=== PATIENT | male | born 1985 | race Caucasian/White ===

== ENCOUNTER 2018-09-12 08:51 | Emergency (ER) | payer BC, SELFPAY ==
[2018-09-12 08:55] VITALS: BP 123/66; PULSE 80; RESP 16; TEMP 36.3; O2SAT 97
--- NOTE | 2018-09-12 09:03 | W.ED.GENAD ---
Discharge Plan Disposition Patient Disposition: HOME Condition: Good Discharge Details Chief Complaint: RashLesion Clinical Impression: Tick bite of chest wall Primary Care Provider: Radha Puentes ED Provider: Carson Ulloa Home Meds and New Rx's Prescriptions: No Action No Known Home Meds RF: 0 Discharge Instructions Instructions: Tick Bite (ED) Additional Instructions: Return to the emergency department if you develop any fever chills, arthralgias, rash, or flulike symptoms with no other cause. Otherwise follow-up with your primary care provider as needed for reassessment Referrals: Radha Puentes [Primary Care Provider] - (As needed for reassessment) Medical Decision Making Patient presenting to the emergency department chief complaint of tick bite. Patient states that him and his noticed the tick this morning. patient denies any other symptoms, arthralgias, fever chills. Physical exam is unremarkable except for attached dog tick. Tick was removed with a tick remover and this was given to the patient for home use. Patient states that his thoroughly looked over the remainder of his body prior to coming in and noted no other tics. Given that this is a dog tick I do not feel that any antibiotics are needed but tickborne illness was discussed with patient. Return precautions discussed. After discussion of diagnosis and plan of care patient has no further needs, questions, or concerns and states clear understanding to return to the emergency department for any worsening symptoms. HPI General Mode of arrival: ambulatory. Date/Time Provider Initiated Documentation: 09/12/18 08:56. Limitations to Documentation: no limitations. Information obtained by: patient and RN notes reviewed. History of Present Illness 33 year old M presents to the emergency department with the chief complaint of Tick bite, Quality is described as other (Denies pain), and is localized to the chest. Patient started experiencing this hour(s) (2) Patient notes no other symptoms.. Patient did receive the following treatments prior to arrival, none Related Data Home Medications Medication Instructions Recorded Confirmed Unknown [No Known Home Meds] 09/12/18 09/12/18 Allergies Allergy/AdvReac Type Severity Reaction Status Date / Time No Known Allergies Allergy Unverified 09/12/18 08:59 General Stated Complaint: RashLesion REBECCA: 5 Review of Systems Constitutional Denies body ache(s), Denies fever(s) and Denies headache(s) ENT Denies headache(s) Musculoskeletal Denies myalgias, Denies arthralgias and Denies joint swelling Integumentary/Breasts Reports as per HPI, Denies erythema and Denies rash Neurologic Denies headache(s) and Denies paresthesias [facility] Social History Do you feel safe at home: Yes Do you feel safe in your relationship?: Yes Exam Const General: cooperative, comfortable and no acute distress Orientation: alert, awake and oriented x3 Resp Effort & Inspection: normal respiratory effort and able to speak in complete sentences Skin General skin exam: no erythema, no fluctuance, no induration and other (Attached tick to the right posterior rib cage) Rashes: no rashes Neuro General: alert, awake and oriented x3 Course Vital Signs Temperature 36.3 C L 09/12/18 08:55 Pulse 80 09/12/18 08:55 Respiratory Rate 16 09/12/18 08:55 Blood Pressure 123/66 09/12/18 08:55 Pulse Oximetry 97 09/12/18 08:55 Temperature 36.3 C L 09/12/18 08:55 Temperature Source Temporal Artery Scan 09/12/18 08:55 Pulse 80 09/12/18 08:55 Respiratory Rate 16 09/12/18 08:55 Respiratory Effort Non-Labored 09/12/18 08:58 Blood Pressure 123/66 09/12/18 08:55 Blood Pressure Position Sitting 09/12/18 08:55 Pulse Oximetry 97 09/12/18 08:55 Oxygen Delivery Method Room Air 09/12/18 08:55 Oxygen Flow Rate 0 09/12/18 08:55 Pain Level 0 09/12/18 08:55
--- NOTE | 2018-09-12 09:06 | ED.GENADUL_ITS ---
Discharge Plan Disposition Patient Disposition: HOME Condition: Good Discharge Details Chief Complaint: RashLesion Clinical Impression: Tick bite of chest wall Primary Care Provider: Radha Puentes ED Provider: Carson Ulloa Home Meds and New Rx's Prescriptions: No Action No Known Home Meds RF: 0 Discharge Instructions Instructions: Tick Bite (ED) Additional Instructions: Return to the emergency department if you develop any fever chills, arthralgias, rash, or flulike symptoms with no other cause. Otherwise follow-up with your primary care provider as needed for reassessment Referrals: Radha Puentes [Primary Care Provider] - (As needed for reassessment) Medical Decision Making Patient presenting to the emergency department chief complaint of tick bite. Patient states that him and his noticed the tick this morning. patient denies any other symptoms, arthralgias, fever chills. Physical exam is unremarkable except for attached dog tick. Tick was removed with a tick remover and this was given to the patient for home use. Patient states that his thoroughly looked over the remainder of his body prior to coming in and noted no other tics. Given that this is a dog tick I do not feel that any antibiotics are needed but tickborne illness was discussed with patient. Return precautions discussed. After discussion of diagnosis and plan of care patient has no further needs, questions, or concerns and states clear understanding to return to the emergency department for any worsening symptoms. HPI General Mode of arrival: ambulatory . Date/Time Provider Initiated Documentation: 09/12/18 08:56 . Limitations to Documentation: no limitations . Information obtained by: patient and RN notes reviewed . History of Present Illness 33 year old M presents to the emergency department with the chief complaint of Tick bite, Quality is described as other (Denies pain), and is localized to the chest. Patient started experiencing this hour(s) (2) Patient notes no other symptoms.. Patient did receive the following treatments prior to arrival, none Related Data Home Medications Medication Instructions Recorded Confirmed Unknown [No Known Home Meds] 09/12/18 09/12/18 Allergies Allergy/AdvReac Type Severity Reaction Status Date / Time No Known Allergies Allergy Unverified 09/12/18 08:59 General Stated Complaint: RashLesion REBECCA: 5 Review of Systems Constitutional Denies body ache(s), Denies fever(s) and Denies headache(s) ENT Denies headache(s) Musculoskeletal Denies myalgias, Denies arthralgias and Denies joint swelling Integumentary/Breasts Reports as per HPI, Denies erythema and Denies rash Neurologic Denies headache(s) and Denies paresthesias [facility] Social History Do you feel safe at home: Yes Do you feel safe in your relationship?: Yes Exam Const General: cooperative, comfortable and no acute distress Orientation: alert, awake and oriented x3 Resp Effort & Inspection: normal respiratory effort and able to speak in complete sentences Skin General skin exam: no erythema, no fluctuance, no induration and other (Attached tick to the right posterior rib cage) Rashes: no rashes Neuro General: alert, awake and oriented x3 Course Vital Signs Temperature 36.3 C L 09/12/18 08:55 Pulse 80 09/12/18 08:55 Respiratory Rate 16 09/12/18 08:55 Blood Pressure 123/66 09/12/18 08:55 Pulse Oximetry 97 09/12/18 08:55 Temperature 36.3 C L 09/12/18 08:55 Temperature Source Temporal Artery Scan 09/12/18 08:55 Pulse 80 09/12/18 08:55 Respiratory Rate 16 09/12/18 08:55 Respiratory Effort Non-Labored 09/12/18 08:58 Blood Pressure 123/66 09/12/18 08:55 Blood Pressure Position Sitting 09/12/18 08:55 Pulse Oximetry 97 09/12/18 08:55 Oxygen Delivery Method Room Air 09/12/18 08:55 Oxygen Flow Rate 0 09/12/18 08:55 Pain Level 0 09/12/18 08:55
== END 2018-09-12 09:09 | disposition home or self-care (01) ==
PROVIDERS: Emergency Provider Nurse Practitioner Family; PCP Nurse Practitioner Family
DX: S20.361A Insect bite (nonvenomous) of right front wall of thorax, initial encounter (principal); W57.XXXA Bitten or stung by nonvenomous insect and other nonvenomous arthropods, initial encounter
CPT/HCPCS: 99282